=== PATIENT | female | born 1965 | race Hispanic/Latino ===

== ENCOUNTER → 2023-01-15 | Outpatient (REF) | payer OTHER ==
[~2023-01-15] MED LIST: LIDOCAINE HCL 1% LOCAL INJ 20 ML VIAL ONE
== END ==
LOC: US 09:32
PROVIDERS: ATTEND Internal Medicine
DX: E04.2 Nontoxic multinodular goiter (principal)
CPT/HCPCS: 10005; 88172; 88173; J2001